=== PATIENT | female | born 1975 | race African-American/Black ===

== ENCOUNTER 2019-10-06 12:07 | Emergency (ER) | payer OTHER ==
[~2019-10-06] VITALS: Ht 157.5 cm; Wt 80.7 kg
[2019-10-06] MEDS ORDERED: NKM (12:15)
[2019-10-06 12:23] VITALS: BP 160/104
--- NOTE | 2019-10-06 12:23 | NUR ---
came to er complaints of lower back pain denies any injury .
--- NOTE | 2019-10-06 12:26 | Emergency Room Report ---
History of Present Illness General Chief Complaint: Lower Back Pain or Injury Source: Patient Present Illness HPI 44-year-old female presents with left lower back pain, started 2 days ago, worsened when bending over, alleviated while resting, severity is moderate, intermittent, sharp in nature, no bowel bladder retention/incontinence, no perianal numbness, no focal weakness. Allergies: Coded Allergies: No Known Allergies (Unverified , 10/06/19) Patient History Past Medical History: see triage record Last Menstrual Period: 10/02/2019 Now: No : 2 Para: 2 Reviewed Nursing Documentation: PMH: Agreed; PSxH: Agreed Nursing Documentation-PM Past Medical History: No Stated History Review of Systems All Other Systems: negative except mentioned in HPI Physical Exam Vital Signs Date Time Temp Pulse Resp B/P (MAP) Pulse Ox O2 Delivery O2 Flow Rate FiO2 10/06/19 12:09 98.6 73 18 160/104 (122) 96 Room Air General Appearance: well appearing, no apparent distress Head: normocephalic, atraumatic Eyes: bilateral eye PERRL, bilateral eye EOMI ENT: hearing grossly normal, normal voice Neck: full range of motion, supple Respiratory: no respiratory distress, speaking full sentences Musculoskeletal: gait/station normal, other - Left lower back paraspinal tenderness, no midline tenderness no step-offs, 5 out of 5 strength bilateral plantar dorsiflexion of the feet, 5 out of 5 strength knee flexion extension, 5 out of 5 strength hip flexion extension, reflexes intact bilateral and equal, sensation grossly intact Neurologic: alert, normal gait Psychiatric: mood/affect normal Skin: no rash Medical Decision Making Diagnostic Impression: Primary Impression: Low back pain Qualified Codes: M54.5 - Low back pain ER Course The patient presents with acute onset of back pain after bending over. Clinically this patient can be ruled out for serious pathology given there is a completely normal neurological exam, no history of IV drug use, and no history of bowel or bladder incontinence, no perianal numbness/tingling, no constipation or urinary retention. Once the patient's pain was adequately controlled, the patient was able to ambulate and be discharged in stable condition with anticipatory guidance provided. Last Vital Signs Date Time Temp Pulse Resp B/P (MAP) Pulse Ox O2 Delivery O2 Flow Rate FiO2 10/06/19 12:23 98.6 18 160/104 96 Room Air 10/06/19 12:09 73 Disposition: HOME, SELF-CARE Condition: Stable Scripts Methocarbamol* (ROBAXIN-750*) 750 Mg Tablet 750 MG PO QID PRN for For Pain, #28 TAB 0 Refills Prov: Gopal Lechuga MD 10/06/19 Lidocaine Patch* (Lidoderm Patch*) 1 Each Adh..patch 1 PATCH TOPIC DAILY, #7 PATCH 0 Refills Patch(es) may remain in place for up to 12 hours in any 24-hour period. Prov: Gopal Lechuga MD 10/06/19 Naproxen* (NAPROSYN*) 250 Mg Tablet 250 MG ORAL BID PRN for For Pain, #20 TAB 0 Refills Prov: Gopal Lechuga MD 10/06/19 Referrals: [facility] Departure Forms: Return to Work Return to Work Date: Oct 08, 2019 Patient Instructions: Low Back Sprain With Rehab-SportsMed, Back Pain, Adult Additional Instructions: The patient was provided with discharge instructions, notified to follow-up with a primary care doctor and or specialist in the next 24-48 hours, and to return to the ED if they have worsening of their symptoms. Please note that this report is being documented using [employer] technology. This can lead to erroneous entry secondary to incorrect interpretation by the dictating instrument. Gopal Lechuga MD Oct 06, 2019 12:26
[2019-10-06] MEDS ORDERED: ROBAXIN-750750 MG PO (12:29)
[2019-10-06] MEDS ORDERED: NAPROXEN250 MG ORAL (12:29)
[2019-10-06] MEDS ORDERED: LIDODERM700 M1 TOPIC (12:29)
[2019-10-06] MEDS ORDERED: Ketorolac 30mg Inj IM ONE (12:30)
[2019-10-06] MEDS ORDERED: oxyCODONE HCL/Acetaminophen 5/325mg ORAL ONE (12:30)
[2019-10-06 13:15] VITALS: BP 130/80
== END 2019-10-06 13:20 | disposition home or self-care (01) ==
LOC: EMR 12:50
DX: M54.5 Low back pain (principal)
CPT/HCPCS: 81025; 96372; J1885; Z7502; 99283

== ENCOUNTER 2019-10-14 09:44 | Emergency (ER) | payer OTHER ==
[~2019-10-14] VITALS: Ht 157.5 cm; Wt 81.6 kg
[~2019-10-14 09:44] MED LIST: LIDODERM700 M1 TOPIC; NAPROXEN250 MG ORAL; NKM; ROBAXIN-750750 MG PO
[2019-10-14 09:56] VITALS: BP 147/94
--- NOTE | 2019-10-14 09:56 | NUR ---
ED Nurse Note: Pt walked into ED c/o of intermittent lower back pain 10/ x1 week ago. Denies fall or injury. Stated that she has history of compressed nerve. Pt is also c/o congestion and cough x2 days. No SOB. Afebrile. VSS.
--- NOTE | 2019-10-14 10:05 | NUR ---
ED Nurse Note: Xray at bedside.
--- NOTE | 2019-10-14 10:23 | Diagnostic Imaging Report ---
Indication: Cough Technique: One view of the chest Comparison: none Findings: Multiple left suprahilar nodules are probably but not definitively calcified, measuring up to 12 mm long axis dimension. The lungs and pleural spaces are otherwise clear except for some atelectasis at the left lateral lung base. The heart size is upper limits of normal. Impression: Probably but not definitively calcified left suprahilar nodules. Recommend CT to confirm calcification. Minimal left lateral basilar atelectasis No acute process otherwise Findings discussed by phone with Dr. Lechuga in the emergency room at the time of interpretation
--- NOTE | 2019-10-14 10:25 | Emergency Room Report ---
History of Present Illness General Chief Complaint: Back Pain-No Injury Source: Patient Present Illness HPI 44-year-old female presents with cough, congestion x2 days along with back pain after she coughs, no bowel bladder retention/incontinence, no fevers no chills no chest pain, she does endorse some shortness of breath, she states she does smoke a lot, she states the back pain is worse with movement coughing, it is sharp and achy, mild severity patient presents for evaluation Allergies: Coded Allergies: No Known Allergies (Unverified , 10/06/19) Patient History Past Medical History: see triage record Social History: Reports: smoking Last Menstrual Period: 10/02/19 Now: No Reviewed Nursing Documentation: PMH: Agreed; PSxH: Agreed Nursing Documentation-PMH Past Medical History: No Stated History Review of Systems All Other Systems: negative except mentioned in HPI Physical Exam Vital Signs Date Time Temp Pulse Resp B/P (MAP) Pulse Ox O2 Delivery O2 Flow Rate FiO2 10/14/19 09:47 98.1 93 18 147/94 (111) 95 Room Air Sp02 EP Interpretation: reviewed, normal General Appearance: well appearing, no apparent distress, alert Head: normocephalic, atraumatic Eyes: bilateral eye PERRL, bilateral eye EOMI ENT: uvula midline, moist mucus membranes, nasal congestion Neck: supple, thyroid normal, supple/symm/no masses Respiratory: no respiratory distress, no retraction, no accessory muscle use, decreased breath sounds Cardiovascular #1: normal peripheral pulses, regular rate, rhythm, no edema, no gallop, no murmur Gastrointestinal: non tender, soft, no guarding, no rebound Musculoskeletal: normal inspection, gait/station normal, other - Narrowness laterally paraspinal area, no midline tenderness no step-offs Neurologic: alert, oriented x3 Psychiatric: mood/affect normal Skin: no rash, warm/dry Medical Decision Making Diagnostic Impression: Primary Impression: Back pain Qualified Codes: M54.5 - Low back pain Additional Impressions: Bronchitis Incidental lung nodule ER Course 44-year-old female presents with cough, congestion, most likely upper respiratory infection/bronchitis, counseled patient about smoking cessation Additionally patient with low back pain with no red flags, tenderness to palpation paraspinal area most likely muscle strain, clinically this patient can be ruled out for serious pathology given there is a completely normal neurological exam, no history of IV drug use, and no history of bowel or bladder incontinence, no perianal numbness/tingling, no constipation or urinary retention. Once the patient's pain was adequately controlled, the patient was able to ambulate and be discharged in stable condition with anticipatory guidance provided. Chest X-Ray Diagnostic Results Chest X-Ray Diagnostic Results : Chest X-Ray Ordered: Yes # of Views/Limited/Complete: 1 View Indication: Shortness of Breath EP Interpretation: Yes Interpretation: no consolidation, no effusion, no pneumothorax, no acute cardiopulmonary disease, other - incidental nodule left lung Impression: Other - incidental nodule left lung Electronically Signed by: Gopal Lechuga MD Last Vital Signs Date Time Temp Pulse Resp B/P (MAP) Pulse Ox O2 Delivery O2 Flow Rate FiO2 10/14/19 09:56 98.1 93 18 147/94 95 Room Air Disposition: HOME, SELF-CARE Condition: Stable Scripts Lidocaine Patch* (Lidoderm Patch*) 1 Each Adh..patch 1 PATCH TOPIC DAILY, #7 PATCH 0 Refills Patch(es) may remain in place for up to 12 hours in any 24-hour period. Prov: Gopal Lechuga MD 10/14/19 Methocarbamol* (ROBAXIN-750*) 750 Mg Tablet 750 MG PO QID, #28 TAB 0 Refills Prov: Gopal Lechuga MD 10/14/19 Acetaminophen (Acetaminophen) 500 Mg Tablet 1000 MG ORAL Q4H for PAIN, #60 TAB Prov: Gopal Lechuga MD 10/14/19 Naproxen* (NAPROSYN*) 250 Mg Tablet 250 MG ORAL BID PRN for For Pain, #20 TAB 0 Refills Prov: Gopal Lechuga MD 10/14/19 Albuterol Sulfate* (ALBUTEROL SULFATE MDI*) 8.5 Gm Hfa.aer.ad 2 PUFF INH Q4H PRN for cough/wheezing, #1 EA 0 Refills Prov: Gopal Lechuga MD 10/14/19 Referrals: NON PHYSICIAN (PCP) [facility]. [facility] Departure Forms: Return to Work Return to Work Date: Oct 16, 2019 Patient Instructions: Acute Bronchitis, [id number], Back Pain, Adult, Steps to Quit Smoking Additional Instructions: The patient was provided with discharge instructions, notified to follow-up with a primary care doctor and or specialist in the next 24-48 hours, and to return to the ED if they have worsening of their symptoms. Please note that this report is being documented using [employer] technology. This can lead to erroneous entry secondary to incorrect interpretation by the dictating instrument. PLEASE FOLLOW-UP WITH PCP AND HAVE AN OUTPATIENT CT SCAN OF YOUR CHEST FOR INCIDENTAL NODULE FINDING. Gopal Lechuga MD Oct 14, 2019 10:25
[2019-10-14] MEDS ORDERED: ACETAMINOPHEN500 M5 ORAL (10:29)
[2019-10-14] MEDS ORDERED: ALBUTEROL SULF8.5 GM INH (10:29)
[2019-10-14] MEDS ORDERED: NAPROXEN250 MG ORAL (10:29)
[2019-10-14] MEDS ORDERED: LIDODERM700 M1 TOPIC (10:29)
[2019-10-14] MEDS ORDERED: ROBAXIN-750750 MG PO (10:29)
[2019-10-14] MEDS ORDERED: Acetaminophen 500mg (ES) tab ORAL ONE (10:30)
[2019-10-14] MEDS ORDERED: Methocarbamol 750mg tab ORAL ONE (10:30)
[2019-10-14 10:39] VITALS: BP 147/94
--- NOTE | 2019-10-14 10:39 | NUR ---
ED Nurse Note: Pt cleared by ERMD for discharge. DC instructions/prescription was given and explained to pt and verbalized understanding of teachings. All medical deviecs such as ID band removed. Pt is AAO x4, ambulatory and left with all personal belongings.
== END 2019-10-14 10:39 | disposition home or self-care (01) ==
LOC: EMR 10:10
DX: J20.9 Acute bronchitis, unspecified (principal); M54.5 Low back pain; R91.1 Solitary pulmonary nodule; F17.200 Nicotine dependence, unspecified, uncomplicated
CPT/HCPCS: 71045; 81025; J8540; Z7502; 99283

== ENCOUNTER 2019-10-28 13:43 | Emergency (ER) | payer OTHER ==
[~2019-10-28] VITALS: Ht 157.5 cm; Wt 81.6 kg
[~2019-10-28 13:43] MED LIST changes: +ACETAMINOPHEN500 M5 ORAL; +ALBUTEROL SULF8.5 GM INH
[2019-10-28 14:01] VITALS: BP 120/79
--- NOTE | 2019-10-28 14:42 | Emergency Room Report ---
History of Present Illness General Chief Complaint: Back Pain-No Injury Source: Patient Present Illness HPI 44 year old female presents with acute on chronic low back pain for 1 day. She has been having this pain for several months and reports this pain is the same as usual. No recent trauma. Denies any dysuria, hematuria, incontinence, fever, numbness or tingling. She takes Ibuprofen for pain with some relief. Denies abdominal pain, chest pain, extremity pain. Allergies: Coded Allergies: No Known Allergies (Unverified , 10/06/19) Patient History Past Medical History: see triage record Last Menstrual Period: 10/02/2019 Reviewed Nursing Documentation: PMH: Agreed; PSxH: Agreed Nursing Documentation-PMH Past Medical History: No History, Except For Review of Systems All Other Systems: negative except mentioned in HPI Physical Exam Vital Signs Date Time Temp Pulse Resp B/P (MAP) Pulse Ox O2 Delivery O2 Flow Rate FiO2 10/28/19 14:01 98.1 16 120/79 95 Room Air 10/28/19 14:01 91 Sp02 EP Interpretation: reviewed, normal General Appearance: no apparent distress, alert, GCS 15, non-toxic Head: normocephalic, atraumatic ENT: hearing grossly normal, normal voice Neck: full range of motion, supple/symm/no masses Respiratory: lungs clear, normal breath sounds, speaking full sentences Cardiovascular #1: regular rate, rhythm Gastrointestinal: normal bowel sounds, non tender, soft, non-distended, no guarding, no rebound Genitourinary: normal inspection, no CVA tenderness Musculoskeletal: back normal, normal range of motion, gait/station normal, non- tender, other - no midline tenderness, no saddle anesthesia Neurologic: alert, motor strength/tone normal, oriented x3, sensory intact, responsive, speech normal Psychiatric: judgement/insight normal, mood/affect normal Skin: no rash, warm/dry Lymphatic: no adenopathy Medical Decision Making PA Attestation Dr. Alex is my supervising physician whom patient management and care has been discussed with. Diagnostic Impression: Primary Impression: Back pain Qualified Codes: M54.5 - Low back pain; G89.29 - Other chronic pain ER Course Pt. presents to the ED c/o acute on chronic back pain. Ddx considered but are not limited to muscular strain, UTI, pyelonephritis, cauda equina syndrome, discitis, nephrolithiasis, herniated disc. Vital signs: are WNL, pt. is afebrile H&PE are most consistent with muscular pain. ORDERS: UA shows no evidence of UTI. Mild blood but no CVA tenderness and pain is bilateral, doubt nephrolithiasis. ED INTERVENTIONS: Given Ibuprofen for pain. DISCHARGE: At this time pt. is stable for d/c to home. No saddle anestheisa, no fever, no midline tenderness, no CVA tenderness. Ambulating with steady gait. Will provide printed patient care instructions, and any necessary prescriptions. Care plan and follow up instructions have been discussed with the patient prior to discharge. Laboratory Tests Test 10/28/19 14:29 Urine Color Pale yellow Urine Appearance Clear Urine pH 5 (4.5-8.0) Urine Specific [place] 1.010 (1.005-1.035) Urine Protein Negative (NEGATIVE) Urine Glucose (UA) Negative (NEGATIVE) Urine Ketones Negative (NEGATIVE) Urine Blood 2+ (NEGATIVE) H Urine Nitrite Negative (NEGATIVE) Urine Bilirubin Negative (NEGATIVE) Urine Urobilinogen Normal MG/DL (0.0-1.0) Urine Leukocyte Esterase Negative (NEGATIVE) Urine RBC 2-4 /HPF (0 - 2) H Urine WBC 0-2 /HPF (0 - 2) Urine Squamous Epithelial Cells Occasional /LPF Urine Bacteria Occasional /HPF (NONE) Urine HCG, Qualitative Negative (NEGATIVE) Last Vital Signs Date Time Temp Pulse Resp B/P (MAP) Pulse Ox O2 Delivery O2 Flow Rate FiO2 10/28/19 14:01 98.1 91 16 120/79 (93) 95 Room Air Disposition: HOME, SELF-CARE Condition: Stable Scripts Cyclobenzaprine Hcl* (FLEXERIL*) 10 Mg Tablet 10 MG ORAL QHS, #10 TAB Prov: Mago Baker N. P.A. 10/28/19 Ibuprofen* (MOTRIN*) 600 Mg Tablet 600 MG ORAL Q6H PRN for For Pain, #30 TAB Prov: Mago Baker N. P.A. 10/28/19 Mago Baker N. P.A. Oct 28, 2019 14:41
[2019-10-28 14:53] LABS: APPEARANCE,URINE CLEAR; BILIRUBIN, URINE NEGATIVE (NEGATIVE); COLOR,URINE PALE YELLOW; GLUCOSE, URINE (UA) NEGATIVE (NEGATIVE); KETONES,URINE NEGATIVE (NEGATIVE); LEUKOCYTE ESTERASE ,URINE NEGATIVE (NEGATIVE); NITRITE,URINE NEGATIVE (NEGATIVE); PH,URINE 5 (4.5-8.0); PROTEIN,URINE NEGATIVE (NEGATIVE); UROBILINOGEN,URINE NORMAL MG/DL (0.0-1.0)
[2019-10-28] MEDS ORDERED: IBUPROFEN600 MG ORAL (15:13)
[2019-10-28] MEDS ORDERED: CYCLOBENZAPRINE10 MG ORAL (15:13)
[2019-10-28 15:20] VITALS: BP 122/82
== END 2019-10-28 15:21 | disposition home or self-care (01) ==
LOC: EMR 14:30
DX: M54.5 Low back pain (principal); G89.29 Other chronic pain
CPT/HCPCS: 81003; 81025; Z7502; 99283

== ENCOUNTER → 2019-12-16 | Emergency (ER) | payer OTHER ==
[~2019-12-16] VITALS: Ht 157.5 cm; Wt 83.9 kg
[~2019-12-16] MED LIST changes: +CYCLOBENZAPRINE10 MG ORAL; +IBU800 MG PO; +IBUPROFEN600 MG ORAL; +Ketorolac 30mg Inj IM ONE; +Methocarbamol 750mg tab ORAL ONE; +ROBAXIN-500MG ORAL
[2019-12-16 18:24] LABS: APPEARANCE,URINE CLEAR; BILIRUBIN, URINE NEGATIVE (NEGATIVE); COLOR,URINE PALE YELLOW; GLUCOSE, URINE (UA) NEGATIVE (NEGATIVE); KETONES,URINE NEGATIVE (NEGATIVE); LEUKOCYTE ESTERASE ,URINE NEGATIVE (NEGATIVE); NITRITE,URINE NEGATIVE (NEGATIVE); PH,URINE 6.5 (4.5-8.0); PROTEIN,URINE NEGATIVE (NEGATIVE); UROBILINOGEN,URINE NORMAL MG/DL (0.0-1.0)
--- NOTE | 2019-12-16 18:40 | Emergency Room Report ---
History of Present Illness General Chief Complaint: Lower Back Pain or Injury Source: Patient Present Illness HPI 44-year-old female with history of chronic low back pain due to old injury here complaining of worsening back pain x3 days. Denies any pain radiation rating a 10 out of 10. Denies tingling numbness, urinary and bowel incontinence. Denies saddle paresthesia. Denies any recent fall or injury. Reports that floral specialist has recommended surgery due to compression of disks however patient refuses to do so. Patient lift heavy objects on a daily basis. Denies urinary symptoms, frequency and urgency. Denies pain radiation to the pubic area. Denies fever and chills, nausea vomiting. Has not taken any medication for symptom relief at this time. Denies Allergies: Coded Allergies: No Known Allergies (Unverified , 10/06/19) Patient History Past Medical History: see triage record Past Surgical History: unable to obtain Pertinent Family History: none Last Menstrual Period: 11/16/19 Now: No Immunizations: UTD Reviewed Nursing Documentation: PMH: Agreed; PSxH: Agreed Nursing Documentation-PMH Past Medical History: No History, Except For Review of Systems All Other Systems: negative except mentioned in HPI Physical Exam Vital Signs Date Time Temp Pulse Resp B/P (MAP) Pulse Ox O2 Delivery O2 Flow Rate FiO2 12/16/19 18:00 97.5 95 16 137/87 (104) 97 Room Air Sp02 EP Interpretation: reviewed, normal General Appearance: no apparent distress, alert, GCS 15, non-toxic Head: normocephalic, atraumatic Eyes: bilateral eye normal inspection, bilateral eye PERRL ENT: hearing grossly normal, normal pharynx, no angioedema, normal voice Neck: full range of motion, supple/symm/no masses Respiratory: chest non-tender, lungs clear, normal breath sounds, no rhonchi, no wheezing, speaking full sentences Cardiovascular #1: regular rate, rhythm, no edema, no murmur Gastrointestinal: normal bowel sounds, non tender, soft, non-distended, no guarding, no rebound Genitourinary: no CVA tenderness Musculoskeletal: back normal, digits/nails normal, no calf tenderness, pelvis stable, non-tender Neurologic: alert, motor strength/tone normal, oriented x3, sensory intact, responsive, speech normal Psychiatric: judgement/insight normal, memory normal, mood/affect normal, no suicidal/homicidal ideation Skin: no rash Lymphatic: no adenopathy Medical Decision Making PA Attestation All my diagnosis and treatment plans were reviewed ad discussed with my supervising physician Dr. Frederick Diagnostic Impression: Primary Impression: Chronic low back pain ER Course 44-year-old female with history of chronic low back pain due to old injury here complaining of worsening back pain x3 days. Denies any pain radiation rating a 10 out of 10. Denies tingling numbness, urinary and bowel incontinence. Denies saddle paresthesia. Denies any recent fall or injury. Reports that floral specialist has recommended surgery due to compression of disks however patient refuses to do so. Patient lift heavy objects on a daily basis. Denies urinary symptoms, frequency and urgency. Denies pain radiation to the pubic area. Denies fever and chills, nausea vomiting. Has not taken any medication for symptom relief at this time. Denies Ddx considered but are not limited to: Lumbar spine sprain, strain, fracture, contusion, neuropathy Vital signs: are WNL, pt. is afebrile H&PE are most consistent with: Chronic low back pain ORDERS: No x-ray necessary this is not a new injury, ibuprofen 800, Robaxin, lidocaine patch ER intervention: Toradol, Robaxin, lidocaine patch DISCHARGE: At this time pt. is stable for d/c to home. Will provide printed patient care instructions, and any necessary prescriptions. Care plan and follow up instructions have been discussed with the patient prior to discharge. Patient to follow-up primary care provider floral specialist, take medication as directed, avoid lifting heavy objects, patient states and going back to work tomorrow. If worsening symptoms return to the emergency room Last Vital Signs Date Time Temp Pulse Resp B/P (MAP) Pulse Ox O2 Delivery O2 Flow Rate FiO2 12/16/19 18:00 97.5 95 16 137/87 (104) 97 Room Air Status: improved Disposition: HOME, SELF-CARE Condition: Stable Scripts Lidocaine Patch* (Lidoderm Patch*) 1 Each Adh..patch 1 PATCH TOPIC DAILY, #7 PATCH 0 Refills Patch(es) may remain in place for up to 12 hours in any 24-hour period. Prov: Tish Sevilla 12/16/19 Ibuprofen (Ibu) 800 Mg Tablet 800 MG PO TID, #30 TAB Prov: Tish Sevilla 12/16/19 Methocarbamol* (ROBAXIN-500*) 500 Mg Tablet 500 MG ORAL TID PRN for For Pain, #15 TAB 0 Refills Prov: Tish Sevilla 12/16/19 Patient Instructions: Low Back Sprain With Rehab-SportsMed Additional Instructions: Take medication as directed, follow-up with your primary care provider, physical therapy may be beneficial, avoid strenuous physical activity, if worsening symptoms return to the emergency room Tish Sevilla Dec 16, 2019 18:40
[2019-12-16 18:50] VITALS: BP 137/87
--- NOTE | 2019-12-16 18:50 | NUR ---
ER DISCHARGE NOTE: Patient is cleared to be discharged per ERPA, pt is aox4, on room air, with stable vital signs. pt was given dc and prescription instructions, pt was able to verbalize understanding, pt id band removed. pt is able to ambulate with steady gait. pt took all belongings.
== END | disposition home or self-care (01) ==
LOC: EMR 18:15
DX: M54.5 Low back pain (principal); G89.29 Other chronic pain
CPT/HCPCS: 81003; 81025; 96372; J1885; Z7502; 99283